=== PATIENT | female | born 1995 | race Caucasian/White ===

== ENCOUNTER 2017-06-22 21:17 | Emergency (ER) | payer OTHER ==
[~2017-06-22] VITALS: Ht 152.4 cm; Wt 67.1 kg
[2017-06-22 21:28] VITALS: Ht 152.4 cm; Wt 67.1 kg
[2017-06-22 22:15] LABS: CALCIUM 8.7 mg/dL (8.5-10.1); CARBON DIOXIDE 27.2 mmol/L (21-32); CHLORIDE SERUM 103 mmol/L (98-107); CREATININE SERUM 0.5 mg/dL (0.6-1.0); GFR1 > 60 mL/min; GLUCOSE SERUM 107 mg/dL (74-106); POTASSIUM SERUM 3.9 mmol/L (3.5-5.1); SODIUM SERUM 141 mmol/L (136-145)
[2017-06-23 00:07] LABS: ALBUMIN 3.6 g/dL (3.4-5.0); BILIRUBIN DIRECT 0.06 mg/dL (0.0-0.2); BILIRUBIN TOTAL 0.2 mg/dL (0.20-1.00); TOTAL PROTEIN, SERUM 7.7 g/dL (6.4-8.2)
[2017-06-23 02:51] VITALS: BP 118/75
== END 2017-06-23 02:51 | disposition home or self-care (01) ==
LOC: ED 21:17
PROVIDERS: Emergency Medicine
DX: R07.89 Other chest pain (principal)
CPT/HCPCS: 85378; J1885; J7030; Q0092; Q9967

== ENCOUNTER 2019-10-25 19:52 | Emergency (ER) | payer OTHER ==
[~2019-10-25] VITALS: Ht 152.4 cm; Wt 62.6 kg
[2019-10-25 19:57] VITALS: Ht 152.4 cm; Wt 62.6 kg
[2019-10-25 21:14] VITALS: BP 123/79
== END 2019-10-25 21:14 | disposition home or self-care (01) ==
LOC: ED 19:52
DX: S92.501A Displaced unspecified fracture of right lesser toe(s), initial encounter for closed fracture (principal); S90.812A Abrasion, left foot, initial encounter; W18.31XA Fall on same level due to stepping on an object, initial encounter; Y93.89 Activity, other specified; Y92.89 Other specified places as the place of occurrence of the external cause; Y99.8 Other external cause status
CPT/HCPCS: Q0092

== ENCOUNTER 2020-03-09 15:34 | Emergency (ER) | payer OTHER ==
[~2020-03-09] VITALS: Ht 152.4 cm; Wt 64.4 kg
[2020-03-09 15:53] VITALS: Ht 152.4 cm; Wt 64.4 kg
[2020-03-09 16:58] LABS: BASOPHIL % 0.5 % (0-2); PLATELET COUNT 271 x10^3mcL (130-400); RED CELL DISTRIBUTION WIDTH 13.4 % (11.5-14.5)
[2020-03-09 17:05] LABS: CARBON DIOXIDE 26.7 mmol/L (21-32); CHLORIDE SERUM 106 mmol/L (98-107); CREATININE SERUM 0.5 mg/dL (0.6-1.0); GFR1 > 60 mL/min; GLUCOSE SERUM 83 mg/dL (74-106); POTASSIUM SERUM 3.8 mmol/L (3.5-5.1); SODIUM SERUM 139 mmol/L (136-145)
[2020-03-09 17:11] LABS: ALBUMIN 3.7 g/dL (3.4-5.0); ALKALINE PHOSPHATASE 59 U/L (46-116); ALT/SGPT 16 U/L (14-59); AST/SGOT 10 U/L (15-37); BILIRUBIN TOTAL 0.3 mg/dL (0.20-1.00); CHOLESTEROL 161 mg/dL (<200); HDL CHOLESTEROL 32 mg/dL (40-60); TOTAL PROTEIN, SERUM 7.2 g/dL (6.4-8.2); TRIGLYCERIDES 146 mg/dL (<150)
[2020-03-09 18:33] VITALS: BP 110/66
== END 2020-03-09 18:33 | disposition home or self-care (01) ==
LOC: ED 15:34
PROVIDERS: Specialist
DX: R42 Dizziness and giddiness (principal); N93.8 Other specified abnormal uterine and vaginal bleeding
CPT/HCPCS: 83880; J7030; Q0092